=== PATIENT | female | born 1995 | race Caucasian/White ===

== ENCOUNTER 2017-01-12 10:09 | Emergency (ER) | payer OTHER ==
[~2017-01-12] VITALS: Ht 165.1 cm; Wt 61.2 kg
[~2017-01-12 10:09] MED LIST: ALTAVERA1 EACH PO; AMOXICILLIN500 MG PO; ANUSOL-HC25 MG PR; ANUSOL-HC30 GM PR; BACTRIM 400-801 EACH PO; CIPRO500 MG PO; COLACE100 MG PO; DICLOFENAC SODI75 MG PO; ESTRACE1 MG PO; FERROUS SULFAT325 MG PO; HYDROCORTISONE28 G3 TOP; IBUPROFEN800 MG PO; IMITREX25 MG PO; IRON TABLET1 EACH; IRON18 MG; KEFLEX500 MG PO; KURVELO1 EACH PO; LEXAPRO20 MG PO; MACROBID 100 M100 MG PO; MELOXICAM15 MG PO; MONO-LINYAH1 EACH PO; MONTELUKAST SOD10 MG PO; NAPROXEN500 MG PO; NITROFURANTOIN100 MG PO; OMEPRAZOLE20 M1 PO; PERCOCET 5-3251 EACH PO; PRENATAL TABLE1 EAC1 PO; PYRIDIUM200 MG PO; SEPTRA DS TABL1 EACH PO; SUDAFED 12-HOU120 MG PO; TRAMADOL HCL50 MG PO; ULTRAM50 MG PO; VITAMIN B-12100 MCG; XULANE PATCH1 EACH TD
[2017-01-12] MEDS ORDERED: PROAIR HFA8.5 GM INH (11:15)
--- NOTE | 2017-01-12 22:05 | EKG ---
[facility] [address] [facility] [place] [address] Signed Marked sinus bradycardia Abnormal ECG No previous ECGs available Confirmed by SARMAD MCGILL MD ([id number]) on 01/12/2017 10:05:06 PM Electronically Signed By: SARMAD MCGILL MD 01/12/17 2205 PATIENT NAME: RAYMOND SILVAASHA Electrocardiogram DATE OF : [birth year] PHYSICIAN: SARMAD MCGILL MD REPORT #: [id number] REPORT IS CONFIDENTIAL AND NOT TO BE RELEASED WITHOUT AUTHORIZATION
== END 2017-01-12 12:34 | disposition home or self-care (01) ==
LOC: ED 10:09
DX: J45.909 Unspecified asthma, uncomplicated (principal); F17.200 Nicotine dependence, unspecified, uncomplicated; Z90.49 Acquired absence of other specified parts of digestive tract; Z88.5 Allergy status to narcotic agent; Z88.1 Allergy status to other antibiotic agents; Z79.899 Other long term (current) drug therapy; Z79.891 Long term (current) use of opiate analgesic
CPT/HCPCS: 93005; 93010; 94640; 99284

== ENCOUNTER 2017-08-19 07:31 | Emergency (ER) | payer OTHER ==
[~2017-08-19] VITALS: Ht 165.1 cm; Wt 56.7 kg
[~2017-08-19 07:31] MED LIST changes: +PROAIR HFA8.5 GM INH
[2017-08-19] MEDS ORDERED: PYRIDIUM200 MG PO (08:59)
[2017-08-19] MEDS ORDERED: CIPRO500 MG PO (08:59)
[2017-08-20] MEDS ORDERED: TRAMADOL HCL50 MG PO (10:31)
[2017-08-20] MEDS ORDERED: IBUPROFEN600 MG PO (10:31)
== END 2017-08-19 09:06 | disposition home or self-care (01) ==
LOC: ED 07:31
DX: N39.0 Urinary tract infection, site not specified (principal); F17.200 Nicotine dependence, unspecified, uncomplicated; Z88.5 Allergy status to narcotic agent; Z88.1 Allergy status to other antibiotic agents; Z79.899 Other long term (current) drug therapy
CPT/HCPCS: 80053; 81001; 83690; 84703; 85025; 87088; 96374; 96375; 99283; J1885; J2405; J7040

== ENCOUNTER 2017-08-20 07:38 | Emergency (ER) | payer OTHER ==
[~2017-08-20] VITALS: Ht 165.1 cm; Wt 56.7 kg
[2017-08-20] MEDS ORDERED: TRAMADOL HCL50 MG PO (10:31)
[2017-08-20] MEDS ORDERED: IBUPROFEN600 MG PO (10:31)
== END 2017-08-20 10:44 | disposition home or self-care (01) ==
LOC: ED 07:38
DX: N83.201 Unspecified ovarian cyst, right side (principal); F17.200 Nicotine dependence, unspecified, uncomplicated; Z88.5 Allergy status to narcotic agent; Z88.1 Allergy status to other antibiotic agents; Z79.2 Long term (current) use of antibiotics; Z79.899 Other long term (current) drug therapy
CPT/HCPCS: 74177; 84702; 85025; 96374; 96375; 99284; J1885; J2405; J7030; Q9967

== ENCOUNTER 2019-03-30 14:56 | Emergency (ER) | payer OTHER ==
[~2019-03-30] VITALS: Ht 165.1 cm; Wt 56.7 kg
[~2019-03-30 14:56] MED LIST changes: +IBUPROFEN600 MG PO
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
== END 2019-03-30 17:40 | disposition home or self-care (01) ==
LOC: ED 14:56
DX: Z04.41 Encounter for examination and observation following alleged adult rape (principal); Z87.891 Personal history of nicotine dependence; Z88.1 Allergy status to other antibiotic agents; Z88.5 Allergy status to narcotic agent; Z79.899 Other long term (current) drug therapy
CPT/HCPCS: 96372; 99284; J0696

== ENCOUNTER 2020-09-20 13:46 | Emergency (ER) | payer OTHER ==
[~2020-09-20] VITALS: Ht 165.1 cm; Wt 70.3 kg
[~2020-09-20 13:46] MED LIST changes: +BACTRIM DS TAB1 EACH PO; +BUPROPION XL300 MG PO; +ESCITALOPRAM OX10 MG PO; +ESCITALOPRAM OX20 MG PO; +GABAPENTIN600 MG PO; +METHENAMINE HIPP1 GM PO; +METHOCARBAMOL500 MG PO; +PANTOPRAZOLE SO40 MG PO
[2020-09-20] MEDS ORDERED: ZOFRAN4 MG PO (17:46)
[2020-09-20] MEDS ORDERED: DILAUDID2 MG PO (17:46)
[2020-09-20] MEDS ORDERED: CEPHALEXIN500 M1 PO (17:46)
[2020-09-20] MEDS ORDERED: DOXYCYCLINE HY100 MG PO (19:27)
== END 2020-09-20 19:15 | disposition home or self-care (01) ==
LOC: ED 13:46
DX: N12 Tubulo-interstitial nephritis, not specified as acute or chronic (principal); F17.200 Nicotine dependence, unspecified, uncomplicated; Z88.5 Allergy status to narcotic agent; Z88.1 Allergy status to other antibiotic agents; Z88.8 Allergy status to other drugs, medicaments and biological substances; Z79.899 Other long term (current) drug therapy
CPT/HCPCS: 80053; 81001; 84703; 85025; 96365; 96366; 96375; 99284-25; J0696; J1200; J1885; J2405; J7030

== ENCOUNTER 2020-11-10 10:11 | Emergency (ER) | payer OTHER ==
[~2020-11-10] VITALS: Ht 165.1 cm; Wt 70.3 kg
[~2020-11-10 10:11] MED LIST changes: +CEPHALEXIN500 M1 PO; +DILAUDID2 MG PO; +DOXYCYCLINE HY100 MG PO; +ZOFRAN4 MG PO
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
== END 2020-11-10 11:58 | disposition home or self-care (01) ==
LOC: ED 10:11
DX: S90.32XA Contusion of left foot, initial encounter (principal); Z23 Encounter for immunization; W22.8XXA Striking against or struck by other objects, initial encounter; F17.200 Nicotine dependence, unspecified, uncomplicated; Z88.5 Allergy status to narcotic agent; Z88.0 Allergy status to penicillin; Z88.1 Allergy status to other antibiotic agents; Z79.899 Other long term (current) drug therapy
CPT/HCPCS: 73630; 90471; 90715; 99283-25

== ENCOUNTER 2021-10-28 00:12 | Observation (INO) | payer BC, OTHER ==
[~2021-10-28] VITALS: Ht 165.1 cm; Wt 76.0 kg
[~2021-10-28 00:12] MED LIST changes: +ONDANSETRON ODT4 MG PO
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
--- NOTE | 2021-10-28 03:30 | NUR ---
TRANSPORTED pt FROM ED TO MED/SURG. pt MOVED SELF FROM STRETCHER TO BED. ASSESSMENT DONE. pt REPORTS SHE IS COMFORTABLE AT THIS TIME. REPORTS REFLUX IS IMPROVED. IV FLUIDS INFUSING. SCDS ON. CALL LIGHT WITHIN REACH.
--- NOTE | 2021-10-28 05:30 | NUR ---
ROUNDED ON pt. RESTING IN BED WITH EYES CLOSED, RESPIRATIONS REGULAR AND UNLABORED. CALL LIGHT WITHIN REACH.
--- NOTE | 2021-10-28 06:49 | NUR ---
ROUNDED ON pt. WOKE TO VOICE. VITALS RECORDED. pt DENIED NEEDS AT THIS TIME. CALL LIGHT WITHIN REACH.
--- NOTE | 2021-10-28 08:00 | NUR ---
Bedside report received from hourly shift RN. Pt up to BR with SBA. Call light within reach. No signs of distress noted. Will cont to monitor.
--- NOTE | 2021-10-28 10:45 | NUR ---
Preprocedure checklist completed with patient. LR and antibiotic hung at bedside as ordered prior to surgery. Consent signed by pt. Pt up to void prior to procedure. All jewelry removed and secured. EKG complete. Pt compliant with assessment and vitals. Call light within reach. Verbalizes needs. Will cont to monitor.
--- NOTE | 2021-10-28 12:22 | NUR ---
10/28/21 1222 Michelle Mauricio 1215: PT ARRIVES TO PACU FROM OR WITH EYES CLOSED. OPA IN PLACE ON 6 L VIA MASK, SATS 100%. PT REQUIRES CHIN LIFT TO ADEQUATELY FOG MASK. RADHA ISIDRO AT BEDSIDE, GABRIEL MATOS SECOND.
--- NOTE | 2021-10-28 13:09 | NUR ---
PT ARRIVED TO FLOOR VIA BED. PT AMBULATED TO BATHROOM FOR 1000ML VOID. REPROTS PAIN 7/10 AFTER GETTING BACK TO BED. [address] SOME SHADOWING PRESENT. BOWEL TONES HYPOACTIVE. PULSES +3 X4. NO EDEMA PRESENT IN LE. LUNGS CLEAR. VITALS STABLE. CPOX IN PLACE. PERSONAL ITEMS AT BEDSIDE.
[2021-10-28] MEDS ORDERED: SUMATRIPTAN SU100 MG PO (13:23)
[2021-10-28] MEDS ORDERED: NITROFURANTOIN100 M1 PO (13:23)
[2021-10-28] MEDS ORDERED: IBUPROFEN600 MG PO (13:33)
[2021-10-28] MEDS ORDERED: ACETAMINOPHEN500 MG PO (13:33)
--- NOTE | 2021-10-28 13:38 | HP ---
[facility] [address] [place], [place] [address] Signed ADMISSION DATE: 10/28/2021 REASON FOR ADMISSION: Acute calculous cholecystitis. HISTORY OF PRESENT ILLNESS: This 26-year-old white woman lives in [place] and works at the [employer] in the [place]. She has a 6-year-old daughter and is unmarried. The patient has had nearly two weeks of persistent nausea and vomiting and episodes of right upper abdominal pain. She was seen in the emergency room on October 23, where she was evaluated and found to have gallstones on gallbladder ultrasound. She was scheduled to follow up with her primary provider in [place] and was not admitted. Her main complaint at that time was persistent nausea and she was treated with Zofran. She presented once again to the emergency room and was evaluated by Dr. Lea at approximately 02:00 a.m. His evaluation showed her liver enzymes and CBC to be normal, but with persistent symptoms of nausea to essentially any oral intake. The patient tells me that she also has had right subcostal and epigastric pain. Since admission with IV fluids, n.p.o. status and so forth, her symptoms are improved. Her evaluation includes a Chem-profile and a CBC, both of which were normal, though her creatinine was slightly elevated at 1.12. PAST MEDICAL HISTORY: Notable for appendectomy laparoscopically undertaken. She also has an incisional hernia at the umbilicus. She has had palpitations in the past, but none recently. She has no shortness of breath or chest pain. ALLERGIES: She has significant sensitivity to all opiates as well as cephalexin. Opiates give her nausea and vomiting and cephalexin gives her profound disabling headache. The patient does describe history of COVID infection a year ago; she has not been vaccinated. PAST SURGICAL HISTORY: Additionally includes right elbow operation, D and C, left shoulder surgery, and known intrauterine synechiae. CURRENT MEDICATIONS: Include albuterol, ibuprofen, tramadol, and Zofran. Electronically Signed By: BRANDO BULLOCK MD 10/28/21 1338 PATIENT NAME: RAYMOND DENNEY HISTORY AND PHYSICAL DATE OF : [birth year] REPORT #: [id number] PHYSICIAN: BRANDO BULLOCK MD PCP: NO PRIMARY CARE PHYSICIAN REPORT IS CONFIDENTIAL AND NOT TO BE RELEASED WITHOUT AUTHORIZATION [facility] [address] [place] [id number] Signed REVIEW OF SYSTEMS: She denies any shortness of breath or chest pain. She does not currently have any palpitations, though she has had a cardiac workup for the same. She was advised to have a less stressful job. Her abdominal pain is in the right subcostal area and mild in nature compared to previously. PHYSICAL EXAMINATION: GENERAL: Pleasant white woman, who looks to be in no acute distress at the moment. VITAL SIGNS: Temperature is 98.4, pulse 58, blood pressure 128/82, and O2 saturation 100% on room air. NECK: Shows no thyromegaly or cervical adenopathy. Trachea is midline. CHEST: Clear. HEART: Regular, without murmur. ABDOMEN: Mildly obese, but soft. There is a non-reducible umbilical hernia. She has mild tenderness in the right subcostal area. There is no palpable mass. She has no ascites. EXTREMITIES: Showed no clubbing, cyanosis, or edema. She does have sequential compression device stockings in place. LABORATORY STUDIES: Showed white count 8.3, hematocrit 43.4, and platelets are 398,000. Chem-profile normal except for creatinine of 1.12, glucose 116, AST 38, bilirubin 0.7, and alkaline phosphatase 95. Urinalysis was normal. Beta-hCG is negative. COVID serology is negative. I have reviewed her imaging studies, specifically the ultrasound and gallstones are noted on the ultrasound. Liver appears normal to my examination. She may have a large shadowing gallstone dominantly. Radiologist interpretation confirms mild hepatic echogenicity without focal lesion. No intrahepatic or extrahepatic ductal dilatation. Common bile duct normal with 3.7 mm diameter. There is mild nodularity of the surface suggestive of cirrhosis, but no focal mass. ASSESSMENT: The patient has acute calculous cholecystitis as manifesting with intractable nausea and some pain. On that basis, cholecystectomy is recommended. She is not considered high risk for cirrhosis of the liver and her platelet count is normal, therefore less likely to have portal hypertension. I discussed in detail the pathophysiology of biliary disease with her and recommendation of cholecystectomy is made. The risks of bleeding, infection, need for open procedure and need for other indicated procedure also reviewed. She coincidentally has an apparently incarcerated incisional hernia at the umbilicus. Electronically Signed By: BRANDO BULLOCK MD 10/28/21 1338 PATIENT NAME: RAYMOND DENNEY HISTORY AND PHYSICAL DATE OF : [birth year] REPORT #: [id number] PHYSICIAN: BRANDO BULLOCK MD PCP: NO PRIMARY CARE PHYSICIAN REPORT IS CONFIDENTIAL AND NOT TO BE RELEASED WITHOUT AUTHORIZATION [address] [address] Signed This was anticipated for operative repair by Dr. Kole Guerra; however, various logistical reasons including childcare issues, she was unable to proceed with that in the past. This could concurrently be repaired if appropriate, but I would not recommend implantation of mesh due to the clean-contaminated nature of cholecystectomy. Suture repair alone would be anticipated though with a somewhat higher rate of recurrence in the future possibly. The risks of bleeding, infection, bile duct injury, need for open procedure, failure to cure her symptoms and other unforeseen complications was reviewed in detail. She understands and wished to proceed. MD CM Navarrete/MODL /[id number] cc: MD Kole Hall MD Copies: SHERMAN LEA MD, ANDREW L MD ~ Electronically Signed By: BRANDO BULLOCK MD 10/28/21 1338 PATIENT NAME: RAYMOND DENNEY HISTORY AND PHYSICAL DATE OF : [birth year] REPORT #: [id number] PHYSICIAN: BRANDO BULLOCK MD PCP: NO PRIMARY CARE PHYSICIAN REPORT IS CONFIDENTIAL AND NOT TO BE RELEASED WITHOUT AUTHORIZATION
--- NOTE | 2021-10-28 14:00 | NUR ---
VSS. Call light within reach. Bowel tones hypoactive. Lap sites with dressings intact- scant amount of strikethrough. Call light within reach. Will cont to monitor.
--- NOTE | 2021-10-28 14:55 | NUR ---
VSS. 5 lap sites with scant amount of strikethrough to dressings noted. Bowel tones hypoactive. Verbalizes needs appropriately. Will cont to monitor.
--- NOTE | 2021-10-28 15:15 | NUR ---
MED REC COMPLETE
--- NOTE | 2021-10-28 16:10 | NUR ---
Pt in bed with family at bedside. Tolerating iv fluids. VSS. No signs of respiratory distress noted. Up to BR with SBA. 5 lap sites dressed with scant amount of strikethrough noted. C/O abdominal tenderness. Bowel tones hypoactive. Pt is eating snacks without n/v. Call light within reach. Will cont to monitor.
--- NOTE | 2021-10-28 19:30 | NUR ---
REPORT RECEIVED FROM DAY SHIFT RN. PT SITTING ON SIDE OF BED READY FOR DC. VS WNL. PT REPORTS PAIN IS TOELRABLE. DENIES NAUSEA. IV DC'D WNL. TIP INTACT. DISCHARGE INSTRUCTIONS PROVIDED BY DAY SHIFT RN. PT DENIES QUESTIONS OR CONCERNS. PT GIVEN WHEELCHAIR RIDE TO FRONT OF HOSPITAL AND LEFT IN PERSONAL VEHICLE WITH MOTHER. ALL PERSONAL BELONGINGS LEFT WITH PT.
--- NOTE | 2021-10-29 08:59 | EKG ---
[facility] [address] [facility] [place] [address] Signed Sinus bradycardia with premature atrial complexes Incomplete right bundle branch block Borderline ECG Confirmed by SARMAD MCGILL MD ([id number]) on 10/29/2021 8:58:46 AM Electronically Signed By: SARMAD MCGILL MD 10/29/21 0859 PATIENT NAME: RAYMOND DENNEY Electrocardiogram DATE OF : [birth year] PHYSICIAN: SARMAD MCGILL MD REPORT #: [id number] REPORT IS CONFIDENTIAL AND NOT TO BE RELEASED WITHOUT AUTHORIZATION
--- NOTE | 2021-11-01 17:10 | PATH ---
[facility] [address] [facility] [place], [place] [address] Signed SPECIMEN(S): A GALLBLADDER AND STONE SPECIMEN SOURCE: A. GALLBLADDER AND STONE CLINICAL HISTORY: Cholecystitis. FINAL PATHOLOGIC DIAGNOSIS: Gallbladder, cholecystectomy: - Chronic cholecystitis. - Cholelithiasis. NAL:cml:C2NR MICROSCOPIC EXAMINATION: Histologic sections of all submitted blocks are examined by light microscopy. These findings, together with the gross examination, support the pathologic diagnosis. GROSS DESCRIPTION: The specimen, labeled "CB, A," and designated on the requisition "gallbladder and stone," is received in formalin and consists of Specimen: Previously opened gallbladder. Dimensions: 7.7 x 3.6 cm. Serosa: Violaceous and smooth. Cystic Duct: Unobstructed but narrow with possible irregular mucosal folding (see additional notes). Calculi: One green-yellow, bosselated calculus measuring 2.3 x 1.8 x 1.8 cm with congealed green bile/sludge. Mucosa: Pale green and martinez with velvety surface and fundic indented mucosal folds. Wall thickness: Up to 0.8 cm. Lymph node: No pericystic lymph nodes are grossly identified. Additional: Ductal margin inked black (en face); remaining ductal region submitted with black ink designating marginal area and blue designating partial incidental serosa and cut body region margin. Molasses Preparer sections are submitted as follows: A1: Cystic duct margin with remaining ductal region inked accordingly A2: Fundic indented mucosal folds with possible devitalization A3: Uninvolved tissue PATIENT NAME: RAYMOND DENNEY PATHOLOGY DATE OF : [birth year] REPORT #: [id number] PHYSICIAN: GILL SIMMONS PCP: NO PRIMARY CARE PHYSICIAN REPORT IS CONFIDENTIAL AND NOT TO BE RELEASED WITHOUT AUTHORIZATION [facility] [address] [place] [address] Signed AT (under the direct supervision of a pathologist) The Gross Description was prepared using a voice recognition system. The report was reviewed for accuracy; however, sound-alike word errors, addition and/or deletions may occur. If there is any question about this report, please contact Client Services. PERFORMING LABORATORY: The technical component was performed by [employer] [address] (CLIA# [id number]). Professional interpretation was performed by [facility][1], [address] [place] [address] (CLIA# [id number]). Diagnostician: Catalina Resendiz MD Pathologist Electronically Signed 11/01/2021 Copies: ~ PATIENT NAME: RAYMOND DENNEY PATHOLOGY DATE OF : [birth year] REPORT #: [id number] PHYSICIAN: [facility] PCP: NO PRIMARY CARE PHYSICIAN REPORT IS CONFIDENTIAL AND NOT TO BE RELEASED WITHOUT AUTHORIZATION
--- NOTE | 2021-11-06 12:13 | OR ---
[facility] [address], [place] [address] Signed DATE OF OPERATION: 10/28/2021 SURGEON: Brando Bullock MD PREOPERATIVE DIAGNOSES: 1. Acute calculous cholecystitis; persistent progressive nausea, vomiting and right upper abdominal pain. 2. Incarcerated incisional hernia at umbilicus. POSTOPERATIVE DIAGNOSES: 1. Acute calculous cholecystitis; persistent progressive nausea, vomiting and right upper abdominal pain. 2. Incarcerated incisional hernia at umbilicus. PROCEDURES: 1. Laparoscopic cholecystectomy with intraoperative cholangiogram. 2. Surgeon-directed fluoroscopy. 3. Repair of incarcerated incisional hernia (separate incision at umbilicus). ANESTHESIA: General endotracheal, Barndo Somers CRNA and local 20 mL of 0.25% Marcaine with epinephrine. INDICATIONS: This 26-year-old white woman presents to the emergency room in the middle of the night and was evaluated by Dr. Lea. She was evaluated several days ago in the ER as well with similar complaints of progressive nausea and vomiting and some right upper abdominal pain. Previously, an ultrasound was performed, which showed gallstones within the gallbladder, but no thickened gallbladder wall. Liver enzymes were normal. She was treated with IV fluids, Zofran and discharged from the ER previously anticipating follow up with her primary care provider in [place]. Her presentation again last night showed intractable nausea and vomiting and the right upper abdominal pain obviously attributed to her symptomatic gallstones. She has been fluid resuscitated now to undergo cholecystectomy preferred by laparoscopic approach as well as possible repair of incarcerated hernia. The hernia is at the site of prior laparoscopic appendectomy at the umbilicus and is nonreducible. It was anticipated to be repaired at another time. She understands the risks of both operations as necessary including the risks of Electronically Signed By: BRANDO BULLOCK MD 11/06/21 1213 PATIENT NAME: RAYMOND DENNEY OPERATIVE REPORT DATE OF : [birth year] REPORT #: [id number] PHYSICIAN: BRANDO BULLOCK MD PCP: NO PRIMARY CARE PHYSICIAN REPORT IS CONFIDENTIAL AND NOT TO BE RELEASED WITHOUT AUTHORIZATION [facility] [address], [place] [address] Signed bleeding, infection, bile duct injury, need for open procedure, and of course failure to cure her symptoms of nausea, vomiting, and abdominal pain. Additionally, she understands possible increased rate of hernia recurrence if mesh is not used (as I have not planned), understand that she wished to proceed. FINDINGS: The gallbladder was chronically and subacutely inflamed. The liver was entirely normal despite possible reports to contrary previously. The gallbladder had a single oblong 2.5 cm gallstone and some sludge. Cholangiogram was normal. Cholecystectomy was performed without problem. As regard to the hernia at the umbilicus, it was definitely non-reducible properitoneal fat, had a defect at the umbilicus. It was repaired through a separate incision, primarily involving excision of the fatty portion and closure of the fascia with a running 0-PDS suture. There were no complications. DESCRIPTION OF PROCEDURE: The patient was brought to the operating room, given a general endotracheal anesthetic. Preoperative antibiotic clindamycin had been given. Sequential compression device stockings used and heparin was administered in the operating room. The abdomen was prepared with a chlorhexidine solution and draped sterilely. The previous incision at the umbilical area was noted. An umbilical piercing was noted cephalad to the umbilicus. An infraumbilical incision was made. Dissection carried through the subcutaneous tissue, anticipating entry through the previous site. The non-reducible hernia at the umbilicus itself was fatty and even with relaxation could not reduce it. Dissection was carried through the subcutaneous tissue to the midline fascia, but the area was scarred and amorphous and entry into the muscular layer resulted in some amount of oozing and various attempts to control it were undertaken. It became clear this was likely not a good spot for entry after all of the fascial edges and muscle was reapproximated with 0-Vicryl suture. It deemed more advisable to perform an entry to the abdomen through a supraumbilical incision, this was accomplished by avoiding the umbilical piercing area. With open Candelaria cannula technique, the abdomen was entered and pneumoperitoneum achieved to a level of 14 mmHg of carbon dioxide gas. Intra-abdominal inspection showed no sign of ascites or carcinomatosis. The liver had a thin layer of omentum covering it. Therefore, the gallbladder was not visible at that point. Three additional trocars were placed in usual configuration, epigastric, right midclavicular, and right anterior axillary line. The omentum was unfurled from its draping over the liver. Notably, the liver was normal despite intimations contrary to that on prior ultrasound interpretation. The gallbladder was subacutely inflamed and chronically inflamed. The gallbladder was elevated cephalad and retracted laterally and using blunt and electrocautery dissection the triangle of Calot was dissected free. Some mildly enlarged pericholecystic lymph nodes were noted. Once the triangle of Calot Electronically Signed By: BRANDO BULLOCK MD 11/06/21 1213 PATIENT NAME: RAYMOND DENNEY OPERATIVE REPORT DATE OF : [birth year] REPORT #: [id number] PHYSICIAN: BRANDO BULLOCK MD PCP: NO PRIMARY CARE PHYSICIAN REPORT IS CONFIDENTIAL AND NOT TO BE RELEASED WITHOUT AUTHORIZATION [facility] [address], [place] [address] Signed was dissected free completely, the cystic duct was noted to have a bulge and a probable stone was milked in a retrograde fashion from the cystic duct back into the gallbladder and a clip was applied across gallbladder cystic duct junction. A transverse choledochotomy was made in the cystic duct and using the Mendoza type cholangiocatheter intraoperative cholangiography was undertaken, which surgeon directed fluoroscopy. Free flow of contrast was noted into the biliary tree with prompt emptying into the duodenum. There was no sign of filling defect within the biliary tree or biliary anomaly. The cystic duct was triply clipped and divided. The gallbladder was dissected free in a retrograde fashion using electrocautery. Clips were applied to the cystic arterial branches as necessary. The gallbladder was extracted through the supraumbilical port site, opened on the back table by the circulating nurse showing tar like sludge and a single large gallstone approximately 2 cm in size. Irrigation was undertaken in subhepatic space. There was no sign of bile leak, bleeding, or other problems. Examination of the area of the umbilicus, where the hernia was noted showed no sign of hollow viscus incarceration, only properitoneal fat. Pneumoperitoneum was relieved after removing the trocars under direct visualization showing no sign of bleeding. To repair the umbilical hernia (incisional hernia). The incision was extended cephalad from the infraumbilical site around the umbilical skin fold and dissection carried down to identify the herniated properitoneal fat. This is from the overlying dermis of the umbilicus. It was relatively large, about 3 cm in size and the defect was relatively small, about 0.5 cm in size. Reduction of this was not likely, therefore it was simply amputated. The fascial defect was then reapproximated with a running 0-PDS suture. Irrigation was undertaken and subcutaneous tissue remodeled to allow for cosmetic closure. The subcutaneous tissue was reapproximated with interrupted 3-0 Vicryl and skin closed with a running subcuticular 3-0 Vicryl at the region of the umbilicus, the epigastric and other trocar sites were closed with interrupted 3-0 Vicryl after application of 20 mL of 0.25% Marcaine with epinephrine through all the sites. Steri-Strips were applied. The patient was ultimately extubated, transferred to the recovery room in good condition, having suffered no complications. Sponge, needle, and instrument counts reported as correct x3. Brando Bullock MD /MODL Electronically Signed By: BRANDO BULLOCK MD 11/06/21 1213 PATIENT NAME: RAYMOND DENNEY OPERATIVE REPORT DATE OF : [birth year] REPORT #: [id number] PHYSICIAN: BRANDO BULLCOK MD PCP: NO PRIMARY CARE PHYSICIAN REPORT IS CONFIDENTIAL AND NOT TO BE RELEASED WITHOUT AUTHORIZATION [address] [place], [place] [address] Signed /[id number] cc: MD Breanna Halla Copies: SHERMAN LEA MD ~ Electronically Signed By: BRANDO BULLOCK MD 11/06/21 1213 PATIENT NAME: RAYMOND DENNEY OPERATIVE REPORT DATE OF : [birth year] REPORT #: [id number] PHYSICIAN: BRANDO BULLOCK MD PCP: NO PRIMARY CARE PHYSICIAN REPORT IS CONFIDENTIAL AND NOT TO BE RELEASED WITHOUT AUTHORIZATION
== END 2021-10-28 19:45 | disposition home or self-care (01) ==
LOC: ED 00:12 → MS 00:13
PROVIDERS: ADMIT Surgery; ATTEND Surgery
PROC: 0FT44ZZ Resection of Gallbladder, Percutaneous Endoscopic Approach (ICD-10-PCS; principal; 2021-10-28 10:20)
PROC: BF12YZZ Fluoroscopy of Gallbladder using Other Contrast (ICD-10-PCS; 2021-10-28 10:20)
DX: K80.12 Calculus of gallbladder with acute and chronic cholecystitis without obstruction (principal); N39.0 Urinary tract infection, site not specified; F17.200 Nicotine dependence, unspecified, uncomplicated; Z88.5 Allergy status to narcotic agent; Z88.1 Allergy status to other antibiotic agents; Z86.16 Personal history of COVID-19; K42.0 Umbilical hernia with obstruction, without gangrene; I49.1 Atrial premature depolarization; R00.1 Bradycardia, unspecified; I45.19 Other right bundle-branch block; Z20.822 Contact with and (suspected) exposure to COVID-19
CPT/HCPCS: 00790; 36415; 74300; 80053; 81001; 83735; 84703; 85025; 87502; 93005; 93010; 96361; 96374; 96375; 99284-25; C9803; G0378; J0131; J0330; J1100; J1644; J1885; J2250; J2405; J2704; J3010; J3475; J7030; J7121; Q9967; U0003

== ENCOUNTER 2022-10-27 22:11 | Emergency (ER) | payer BC, OTHER ==
[~2022-10-27] VITALS: Ht 165.1 cm; Wt 71.2 kg
[~2022-10-27 22:11] MED LIST changes: +ACETAMINOPHEN500 MG PO; +CYCLOBENZAPRINE10 MG PO; +MELOXICAM7.5 MG PO; +NITROFURANTOIN100 M1 PO; +SUMATRIPTAN SU100 MG PO
[2022-10-28 00:18] VITALS: BP 113/74
== END 2022-10-28 00:21 | disposition home or self-care (01) ==
LOC: ED 22:11
DX: Z48.02 Encounter for removal of sutures (principal); F17.200 Nicotine dependence, unspecified, uncomplicated; Z88.5 Allergy status to narcotic agent; Z88.1 Allergy status to other antibiotic agents; Z79.899 Other long term (current) drug therapy
CPT/HCPCS: 99282